=== PATIENT | male | born 1955 | race Caucasian/White ===

== ENCOUNTER 2017-11-24 13:12 | Observation (INO) | payer MEDICAID ==
[~2017-11-24] VITALS: Ht 180.3 cm; Wt 144.1 kg
--- NOTE | ~2017-11-24 | HEMODYNAMI ---
PATIENT:SOCORRO SOLORIO MEDICAL RECORD: [id number] : 55 LOCATION:[facility] D.2103 ADMISSION DATE: 11/24/17 Generatedon:11/25/201711:59 Patient name: SOCORRO SOLORIO Patient #: [id number] SSN: : 1 Date of study: 11/25/2017 Page: Of Hemodynamic Procedure Report Patient Data Patient Demographics Procedure consent was obtained First Name: SOCORRO Gender: Male Last Name: LYNDSEY : 1955 [facility] Initial: B Age: 62 year(s) Patient #: [id number] Race: Unknown Additional ID: [id number] Contact details Address: [address] State: [place] City: [place] Zip code: [address] Past Medical History Allergies Allergen Reaction Date Comments Reported Penicillins 11/25/2017 Admission Admission Data Admission Date: 11/24/2017 Admission Time: 15:25 Room #: D2103 Lab Results Lab Result Date: 11/25/2017 Lab Result Time: 0:00 Biochemistry Name Units Result Min Max BUN mg/dl 19 --(----)*- 7 18 Creatinine mg/dl 1.3 --(---*)-- 0.6 1.3 CBC Name Units Result Min Max Hemoglobin g/dl 14.9 --(-*--)-- 13.5 17.5 Procedure Procedure Types Cath Procedure Diagnostic Procedure [facility] w/Coronaries Procedure Description Procedure Date Procedure Date: 11/25/2017 Procedure Start Time: 11:47 Procedure End Time: 11:58 Procedure Staff Name Function Lc Hawthorne MD Performing Physician Marshall Jorge RT Monitor Wei Olivarez RN Nurse Procedure Data Cath Procedure Fluoroscopy Diagnostic fluoroscopy Total fluoroscopy Time: 1.8 time: 1.8 min min Diagnostic fluoroscopy Total fluoroscopy dose: dose: 351.08 mGy 351.08 mGy Contrast Material Contrast Material Type Amount (ml) Isovue 300 49 Entry Location Entry Primary Successful Side Size Upsize Upsize Entry Closure Curtis ccessful Closure Location (Fr) 1 (Fr) 2 (Fr) Remarks Device Remarks Radial Right 6 Fr Mechanical artery Short Compression Estimated blood loss: 10 ml Diagnostic catheters Device Type Used For End Catheter Placement DIAGNOSTIC [place] 110cm 5 Procedure Fr catheter ([id number]) Procedure Medications Medication Administration Route Dosage Oxygen NC 2 l/min Heparin Flush Bag added to field 2 bags (1000units/500ml NS) 0.9% NaCl I.V. 100 ml/hr Radial Cocktail added to field 1 syringe (Verapomil 2mg/Nitro 400mcg/Heparin 1500units) Fentanyl I.V. 50 mcg Versed I.V. 1 mg Radial Cocktail added to field 1 syringe (Verapomil 2mg/Nitro 400mcg/Heparin 1500units) Fentanyl I.V. 50 mcg Versed I.V. 1 mg Fentanyl I.V. 50 mcg Hemodynamics Rest HGB: 14.9 (g/dl) Heart Rate: 73 (bpm) Pressure Samples Time Site Value (mmHg) Purpose Heart Use Rate(bpm) 11:49 LV 32/27,31 Snapshot 79 11:49 LV 121/10,11 Snapshot 101 Snapshots Pre Cath Intra NCS Post Cath Vital Signs Time Heart Resp SPO2 etCO2 NIBP (mmHg) Rhythm Pain Sedation Rate (ipm) (%) (mmHg) Status Level (bpm) 11:32:51 76 23 95 16.6 156/100(132) NSR 0 (11) 10(A) , No pain 11:37:30 83 24 95 34.1 165/114(141) NSR 0 (11) 10(A) , No pain 11:42:12 83 22 94 0 160/103(122) NSR 0 (11) 10(A) , No pain 11:46:53 82 19 94 26.5 137/88(103) NSR 0 (11) 10(A) , No pain 11:51:21 91 21 92 31 131/84(101) NSR 0 (11) 10(A) , No pain 11:55:49 83 19 91 15.1 131/93(106) NSR 0 (11) 10(A) , No pain Medications Time Medication Route Dose Verified Delivered Reason Notes Effectiveness by by 11:32:17 Oxygen NC 2 l/min Lc Olivarez RN physician 11:32:26 Heparin Flush added 2 bags Lc Wei used for Bag to Marine Olivarez RN procedure (1000units/500ml field NS) 11:32:39 0.9% NaCl I.V. 100 Lcduong Duttay Per ml/hr Marine Olivarez RN physician 11:32:46 Radial Cocktail added 1 Lc Carvajal used for (Verapomil to syringe Marine Olivarez RN procedure 2mg/Nitro field 400mcg/Heparin 1500units) 11:47:01 Fentanyl I.V. 50 mcg Lc Carvajal for sedation Marine Olivarez RN 11:47:07 Versed I.V. 1 mg Lc Duttay for sedation Marine Olivarez RN 11:49:32 Radial Cocktail added 1 Lc Lc for (Verapomil to syringe Marine Hawthorne MD vasodilation 2mg/Nitro field 400mcg/Heparin 1500units) 11:49:37 Fentanyl I.V. 50 mcg Lc Carvajal for sedation Marine Olivarez RN 11:49:42 Versed I.V. 1 mg Lc Duttay for sedation Marine Olivarez RN 11:51:29 Fentanyl I.V. 50 mcg Lc Carvajal for sedation Marine Olivarez RN Procedure Log Time Note 11:09:36 Diagnostic Cath Status : Elective 11:09:56 Marshall Jorge RT(R) (CV) sent for patient. Start room use. 11:09:58 Time tracking: Regular hours 11:10:03 Plan of Care:Hemodynamics will remain stable., Cardiac rhythm will remain stable., Comfort level will be maintained., Respiratory function will remain adequate., Patient/ family verbilizes understanding of procedure., Procedure tolerated without complication., Recovers from procedure without complications.. 11:21:47 Patient received from Med II to CCL 3 Alert and oriented. Tansferred to table in Supine position. 11:21:48 Warm blankets applied, and alban hugger turned on for patient comfort. 11:21:49 Correct patient and procedure confirmed by team. 11:21:50 Signed procedure consent form obtained from patient. 11:21:51 ECG and BP/O2 sat monitors applied to patient. 11:31:19 Vital chart was started 11:31:27 Baseline sample Acquired. 11:31:33 Rhythm: sinus rhythm 11:31:35 Full Disclosure recording started 11:31:39 H&P Date Dictated: 11/25/2017 New H&P dictated by physician.. 11:31:40 Pre-procedure instructions explained to patient. 11:31:40 Pre-op teaching completed and patient verbalized understanding. 11:31:42 Family unavailable. 11:31:43 Patient NPO since Midnight. 11:31:46 Is the patient allergic to Iodine/contrast media? No. 11:31:47 Was the patient premedicated? No 11:31:48 Is patient on blood thinner?Yes 11:31:51 ACC The patient was administered the following blood thiners within the last 24 hours: ACCPlavix 11:31:53 Patient diabetic? Yes. 11:31:54 If diabetic: On Metformin? Yes 11:31:59 If on Metformin: Last Dose? 11/23/2017 11:32:03 Previous problem with sedation/anesthesia? No ? 11:32:04 Snore? Yes 11:32:05 Sleep apnea? Yes 11:32:06 Deviated septum? No 11:32:07 Opens mouth fully? Yes 11:32:08 Sticks out tongue? Yes 11:32:10 Airway obstruction? No ? 11:32:16 Dentures? Yes out 11:32:17 Oxygen 2 l/min NC was administered by Wei Olivarez RN; Per physician; 11:32:26 Heparin Flush Bag (1000units/500ml NS) 2 bags added to field was administered by Wei Olivarez RN; used for procedure; 11:32:26 Patient pain scale 0/10 ?. 11:32:39 0.9% NaCl 100 ml/hr I.V. was administered by Wei Olivarez RN; Per physician; 11:32:39 IV patent on arrival in left forearm with 0.9% NaCl at [facility]. 11:32:41 Lab results completed and on chart. 11:32:45 Right Radial & Right Groin area was prepped with chlora-prep and draped in sterile fashion 11:32:46 Radial Cocktail (Verapomil 2mg/Nitro 400mcg/Heparin 1500units) 1 syringe added to field was administered by Wei Olivarez RN; used for procedure; 11:32:46 Alarms reviewed by R. N. 11:32:46 Sharps counted by scrub and verified by R.N. 11:33:11 Lab Result : BUN 19 mg/dl 11:33:11 Lab Result : Creatinine 1.3 mg/dl 11:33:11 Lab Result : Hemoglobin 14.9 g/dl 11:37:56 Patient allergic to Penicillins 11:41:25 Physician arrived 11:41:26 --------ALL STOP TIME OUT------ 11:41: Final Timeout: patient, procedure, and site verified with staff and physician. All members of the team are in agreement. 11:41:31 Right Radial & Right Groin site verified by team. 11:41:53 Physical assessment completed. ASA score P 2 - A patient with mild systemic disease as per Lc Hawthorne MD. 11:42:05 Sedation plan: IV Moderate Sedation Medication:Versed, Fentanyl 11:44:41 Use device set Radial Dx or PCI 11:44:43 ACIST Syringe (16006) opened to sterile field. 11:44:44 Medline Cath Pack ([id number]) opened to sterile field. 11:44:45 Bag Decanter (2002S) opened to sterile field. 11:44:46 SHEATH 6FR Slender ([id number]) opened to sterile field. 11:44:47 DIAGNOSTIC WIRE .035 260cm J wire (903286) opened to sterile field. 11:44:48 ACIST Hand Control (39063) opened to sterile field. 11:44:49 ACIST Manifold (81490) opened to sterile field. 11:44:50 Tegaderm 4 x 4 (1626W) opened to sterile field. 11:44:51 MBrace Wrist Support ([id number]) opened to sterile field. 11:46:54 Zero performed for pressure channel P1 11:47:01 Fentanyl 50 mcg I.V. was administered by Wei Olivarez RN; for sedation; 11:47:05 Procedure started. 11:47:07 Versed 1 mg I.V. was administered by Wei Olivarez RN; for sedation; 11:47:11 Local anesthetic to right radial artery with Lidocaine 2% by Lc Hawthorne MD.INITIAL ACCESS ONLY 11:47:51 A 6 Fr Short sheath was inserted into the Right Radial artery 11:48:22 A DIAGNOSTIC [place] 110cm 5 Fr catheter (015214) was advanced over the wire and used for Procedure. 11:49:32 Radial Cocktail (Verapomil 2mg/Nitro 400mcg/Heparin 1500units) 1 syringe added to field was administered by Lc Hawthorne MD; for vasodilation; 11:49:37 Fentanyl 50 mcg I.V. was administered by Wei Olivarez RN; for sedation; 11:49:42 Versed 1 mg I.V. was administered by Wei Olivarez RN; for sedation; 11:50:05 LV hemodynamics recorded. 11:50:11 EF : 60 % 11:50:19 LV gram done using MCKEON 11:51:29 Fentanyl 50 mcg I.V. was administered by Wei Olivarez RN; for sedation; 11:51:35 LCA angiography performed. 11:51:46 RCA angiography performed. 11:52:16 Catheter removed. 11:52:19 TR BAND Large ([id number]) opened to sterile field. 11:53:07 Sheath removed intact; hemostasis achieved with Mechanical Compression to the Right Radial artery. 11:53:10 Procedure ended.(Physican Out) 11:54:16 Fluoroscopy time 01.80 minutes. 11:54:25 Fluoroscopy dose: 351.08 mGy 11:54:25 Flurop Dose total: 351.08 11:54:40 Contrast amount:Isovue 300 49ml. 11:56:49 TR band inflated with 11cc of air. 11:56:55 Insertion/operative site no bleeding no hematoma. 11:57:16 Post right radial artery:stable 11:57:23 Post-procedure physical assessment completed. ASA score P 2 - A patient with mild systemic disease as per Lc Hawthorne MD. 11:57:26 Post procedure rhythm: unchanged. 11:57:29 Estimated blood loss: 10 ml 11:57:31 Post procedure instruction explained to patient.Patient verbalizes understanding. 11:57:31 Patient needs reinforcement of post procedure teaching. 11:57:33 Procedure and supply charges have been captured, reviewed, submitted and are correct. 11:57:52 Vital chart was stopped 11:57:53 See physician's report for complete and final results. 11:57:58 Report given to [facility]. 11:58:02 Patient transfered to [facility] with Bed. 11:58:04 Procedure ended. 11:58:04 Full Disclosure recording stopped 11:58:09 End room use (Document Last) Device Usage Item Name Manufacture Quantity Catalog Hospital Part Current Minima l Lot# / Number Charge Number Stock Stock Serial# Code ACIST Acist 1 23894 [id number] 708873 137276 20 Syringe Medical (78516) Systems Inc Medline Cath Cardinal 1 [id number] 508391 93930 885494 5 Pack Health ([id number]) Bag Decanter Microtek 1 2001S 338267 35572 330488 5 (2001S) Medical Inc. SHEATH 6FR Terumo 1 [id number] 415545 187471 690053 40 Slender ([id number]) DIAGNOSTIC [facility] [place] 1 391639 879952 732923 616271 30 WIRE .035 260cm J wire (741460) ACIST Hand Acist 1 84294 279821 527901 633056 5 Control Medical (81658) Systems Inc ACIST Acist 1 98979 624957 961291 954593 5 Manifold Medical (37121) Systems Inc Tegaderm 4 x 3M 1 1626W 102454 350315 521734 5 4 (1626W) MBrace Wrist Advanced 1 [id number] 760042 48457 387215 5 Support Vascular ([id number]) Dynamics DIAGNOSTIC Terumo 1 40-6085 284437 005665 481029 5 [place] 110cm 5 Fr catheter (901856) TR BAND Terumo 1 [id number] 450957 641305 903675 40 Large ([id number]) Signature Audit [place] Stage Time Signature Unsigned Intra-Procedure 11/25/2017 Marshall Jorge 11:59:31 AM RT(R) (CV) Signatures Monitor : Marshall Jorge RT Signature : Date : Time : [address] [place] [address]
--- NOTE | ~2017-11-24 | HP ---
PATIENT: SOCORRO SOLORIO MEDICAL RECORD: [id number] ACCOUNT: [id number] LOCATION:[address] : 55 ADMISSION DATE: 11/24/17 HISTORY AND PHYSICAL EXAMINATION DIAGNOSES: 1. Unstable angina. 2. Supraventricular tachycardia. 3. Abnormal ECG. HISTORY OF PRESENT ILLNESS: Mr. Solorio presents with chest discomfort, found to be in supraventricular tachycardia with heart rates in the 160 range. He was given IV beta-hazel, broke, he is in the 70s, his chest pain went away. He had chest pain for greater than an hour with this. He has not had a history of ischemic heart disease, not had a cardiac catheterization in the past. He has a history of distant past for a pacemaker that reached end of life and he had this removed by Dr. Agustin a number of years ago. He has hyperlipidemia and wgb-njzbtty-owxugxket diabetes. PHYSICAL EXAMINATION: GENERAL APPEARANCE: Well-nourished, well-developed, appears stated age. Level of distress, comfortable. PSYCHIATRIC: Mental status, alert, normal affect. Orientation, oriented to time, place and person. EYES: Lids and conjunctiva, noninjected. No discharge, no pallor. ENT: Lips, teeth, gums, normal dentition. Oropharynx, no cyanosis, no pallor. NECK: Carotid arteries, bilateral normal upstroke, no bruits, no thrills. JUGULAR VEINS: No jugular venous pressure or distention. CERVICAL LYMPH NODES: Nontender, nonenlarged. THYROID: Not enlarged. Nontender. No nodules. LUNGS: Respiratory effort, unlabored. CHEST: Normal curvature. No thoracic deformity. No chest wall tenderness. Percussion, resonant. Auscultation, clear. No wheezes, no rales, no rhonchi. CARDIOVASCULAR: Precordial exam, nondisplaced. No heaves or pericardial thrills. Rate and rhythm, regular. Heart sounds, normal S1, normal S2. No S3, no gallop, no rub. Systolic murmur, not heard. Diastolic murmur, not heard. EXTREMITIES: No cyanosis, no edema. Peripheral pulses, full and equal in all extremities, except as noted. No bruits appreciated. ABDOMEN: Soft, nondistended. Normal aorta. No bruit. Nontender. No masses. Liver, nontender, no hepatomegaly. Spleen, nontender, no splenomegaly. MUSCULOSKELETAL: No joint tenderness. No joint swelling. No erythema. NEUROLOGICAL: Normal gait, normal strength, normal tone. SKIN: Warm and dry. REVIEW OF SYSTEMS: The patient reports easy bruising but reports no swollen glands. The patient reports no fever, no night sweats, no significant weight gain, no significant weight loss. No significant exercise tolerance. The patient reports no dry eyes, no irritation, no vision change. Patient reports no difficulty hearing and no ear pain. Patient reports no frequent nose bleeds or nose and sinus problems. Patient reports on arm pain on exertion. No shortness of breath while lying down. No history of heart murmur. Patient reports no cough, no wheezing or coughing up blood. Patient reports no abdominal pain, no vomiting. Normal appetite. No diarrhea and not vomiting blood. No nausea and no constipation. Patient reports no incontinence. No difficulty urinating. No hematuria. No increased frequency. Patient reports HISTORY AND PHYSICAL [id number] SOCORRO SOLORIO no muscle aches. No weakness, no arthralgias, no back pain. No swelling of the extremities. Patient reports no abnormal mole, no jaundice, no rashes. Reports no loss of consciousness. No weakness and no numbness. No seizures, dizziness, or headaches. The patient reports no depression, no sleep disturbance, feeling safe in a relationship and no alcohol abuse. Patient reports on fatigue. Reports no runny nose or sinus pressure. No itching, no hives, and no frequent sneezing. OVERALL IMPRESSION: Unstable angina, most likely has hemodynamically significant coronary artery disease. We will start him on metoprolol 25 mg b.i.d., aspirin and Plavix. Plan for cardiac catheterization in the a.m. TRANSINT:[id number] Voice Confirmation ID: [id number] DOCUMENT ID: [id number] RAYMOND SPARKS MD at 1148 CC: [id number] DICTATION DATE: 11/24/17 1526 STATION MANAGER: 11/24/17 1543 DIS IN 11/25/17 [place] [id number] [place] [id number]
--- NOTE | ~2017-11-24 | DS ---
PATIENT:SOCORRO SOLORIO :55 MEDICAL RECORD: [id number] DISCHARGE SUMMARY ADMISSION DATE: 11/24/17 DISCHARGE DATE: 11/25/17 DISCHARGE DIAGNOSES: 1. Supraventricular tachycardia. 2. Chest pain. 3. Normal cardiac catheterization. HOSPITAL COURSE: Mr. Solorio presents with chest pain and supraventricular tachycardia. The supraventricular tachycardia was broken with a beta hazel. He was placed on Lopressor. He had no further episodes of the supraventricular tachycardia. Cardiac catheterization revealed no significant coronary artery disease. He was discharged home with the addition of Lopressor 25 mg b.i.d. to his medical regimen. He will follow up with [facility] in 1 month. TRANSINT:[id number] Voice Confirmation ID: [id number] DOCUMENT ID: [id number] RAYMOND SPARKS MD at 1148 CC: [id number] DICTATION DATE: 11/25/[address] RADIO TECHNICIAN: 11/25/17 1230 DIS IN 11/25/17 [place] [id number] [place] [address]
--- NOTE | ~2017-11-24 | OP ---
PATIENT NAME: SOCORRO SOLORIO MEDICAL RECORD: [id number] :55 LOCATION:D.M2 D.2103 ADMISSION DATE:11/24/17 SURGEON: RAYMOND SPARKS MD DATE OF OPERATION: 11/25/2017 PROCEDURES: 1. Left heart catheterization. 2. Selective coronary angiography. 3. Left ventriculogram. INDICATION: Chest pain compatible with angina. PROCEDURE IN DETAIL: After informed consent was obtained and after detailed explanation of risks, benefits as well as alternative therapies, the patient elected to proceed with angiogram and angioplasty. The right radial area was prepped and draped in normal sterile fashion. The right radial artery was cannulated via modified Seldinger technique with placement of 6-Swedish sheath. All catheters exchanged through this sheath. FINDINGS: Left ventriculogram was performed in standard 30-degree MCKEON view, reveals good cardiac wall motion throughout all segments. Overall ejection fraction estimated at 60%. SELECTIVE CORONARY ANGIOGRAPHY: Left main, left anterior descending, left circumflex, right coronary all have only minimal irregularities, nothing greater than 10%. No flow-limiting stenosis. OVERALL IMPRESSION: Chest pain is not due to ischemic heart disease secondary to the arrhythmia. Center medical management on treatment of arrhythmia. TRANSINT:[id number] Voice Confirmation ID: [id number] DOCUMENT ID: [id number] RAYMOND SPARKS MD at 1148 CC: [id number] DICTATION DATE: 11/25/17 1158 CERTIFIED PROFESSIONAL MIDWIFE: 11/25/17 1207 DIS IN 11/25/17 [place] [id number] [place] [address]
[2017-11-24 13:46] LABS: BASOPHILS 0.2 % (0-2); EOSINOPHILS 1.5 % (0-7); HEMATOCRIT 44.7 % (42.0-54.0); HEMOGLOBIN 14.9 g/dL (13.5-17.5); IMMATURE GRANULOCYTES 0.2 % (0-5); LYMPHOCYTES 28.7 % (15-50); MCH 30.5 pg (26.0-34.0); MCHC 33.3 g/dL (31.0-37.0); MCV 91.6 fL (80.0-100.0); MEAN PLATELET VOLUME 10.3 fL (7.4-10.4); MONOCYTES 6.2 % (2-11); NEUTROPHILS 63.2 % (40-80); PLATELET COUNT 154 10x3/uL (130-400); RBC 4.88 10x6/uL (4.20-6.10); RDW 14.2 % (11.5-14.5); WBC 5.8 10x3/uL (4.8-10.8)
[2017-11-24 14:06] LABS: ALBUMIN 4.2 g/dL (3.4-5.0); ALKALINE PHOSPHATASE 70 U/L (46-116); ALT (SGPT) 52 U/L (10-68); BILIRUBIN - TOTAL 0.63 mg/dL (0.2-1.3); CALC OSMOLALITY 288 mosm/kg (275-300); CALCIUM 9.2 mg/dL (8.5-10.1); CARBON DIOXIDE 26.7 mmol/L (21.0-32.0); CHLORIDE - SERUM 104 mmol/L (98-107); CREATININE - SERUM 1.3 mg/dL (0.6-1.3); GLUCOSE 209 mg/dL (74-106); POTASSIUM - SERUM 3.5 mmol/L (3.5-5.1); PROTEIN - SERUM 7.5 g/dL (6.4-8.2); SODIUM 141 mmol/L (136-145); UREA NITROGEN 19 mg/dL (7-18); eGFR NON AFRICAN AMERICAN 59 mL/min (90-120)
[2017-11-24 14:14] LABS: CHOL - HDL RATIO 4.8 ratio (2.3-4.9); CHOLESTEROL, TOTAL 144 mg/dL (0-200); CKMB 5.2 U/L (0.0-3.6); CREATINE KINASE 429 UL (21-232); HDL CHOLESTEROL 30 mg/dL (32-96); LDL CHOLESTEROL 46 mg/dL (0-100); LDL-HDL RATIO 1.5 ratio (1.5-3.5); TRIGLYCERIDE 344 mg/dL (30-200)
[2017-11-24 14:16] LABS: TROPONIN-I < 0.017 ng/mL (0.000-0.060)
[2017-11-24] MEDS ORDERED: ZOCOR40 MG PO (22:24)
[2017-11-24] MEDS ORDERED: ZESTRIL40 MG PO (22:24)
[2017-11-24] MEDS ORDERED: HYDROCODONE-APA1 TAB PO (22:24)
[2017-11-24] MEDS ORDERED: MOBIC7.5 MG PO (22:24)
[2017-11-24] MEDS ORDERED: ZITHROMAX250 MG PO (22:25)
[2017-11-25 04:00] VITALS: BP 108/77
[2017-11-25 05:26] VITALS: BP 108/77; BP 137/78; Ht 180.3 cm; Wt 144.1 kg
[2017-11-25 09:10] VITALS: BP 128/82
[2017-11-25] MEDS ORDERED: LOPRESSOR25 MG PO (13:19)
== END 2017-11-25 18:03 | disposition home or self-care (01) ==
LOC: D.ER 13:12 → D.CATH 13:12 → D.M2 15:25 → D.EDHOLD 15:25 → OBSVTIME 15:25 → D.EDHOLD 17:01 → D.CATH 17:01 → D.M2 20:12 → EDSTATUS 11-25 11:30 → D.M2 11-25 18:03
PROVIDERS: Emergency Medicine
DX: I47.1 Supraventricular tachycardia (principal); R07.9 Chest pain, unspecified; E78.5 Hyperlipidemia, unspecified; E11.9 Type 2 diabetes mellitus without complications

== ENCOUNTER 2018-03-23 06:12 | Emergency (ER) | payer MEDICAID ==
[~2018-03-23] VITALS: Ht 180.3 cm; Wt 139.1 kg
[~2018-03-23 06:12] MED LIST: HYDROCODONE-APA1 TAB PO; LOPRESSOR25 MG PO; MOBIC7.5 MG PO; ZESTRIL40 MG PO; ZITHROMAX250 MG PO; ZOCOR40 MG PO
[2018-03-23 06:20] VITALS: Ht 180.3 cm; Wt 139.1 kg
[2018-03-23] MEDS ORDERED: LEVAQUIN500 MG PO (06:22)
[2018-03-23 06:56] LABS: BASOPHILS 0.2 % (0-2); EOSINOPHILS 1.5 % (0-7); HEMATOCRIT 45.4 % (42.0-54.0); HEMOGLOBIN 15.1 g/dL (13.5-17.5); IMMATURE GRANULOCYTES 0.4 % (0-5); LYMPHOCYTES 29.5 % (15-50); MCHC 33.3 g/dL (31.0-37.0); MCV 90.3 fL (80.0-100.0); MEAN PLATELET VOLUME 10.7 fL (7.4-10.4); MONOCYTES 6.6 % (2-11); NEUTROPHILS 61.8 % (40-80); PLATELET COUNT 136 10x3/uL (130-400); RBC 5.03 10x6/uL (4.20-6.10); RDW 13.9 % (11.5-14.5); WBC 4.5 10x3/uL (4.8-10.8)
[2018-03-23 07:12] LABS: ALBUMIN 3.8 g/dL (3.4-5.0); ALKALINE PHOSPHATASE 79 U/L (46-116); ALT (SGPT) 55 U/L (10-68); CALC OSMOLALITY 286 mosm/kg (275-300); CALCIUM 9.4 mg/dL (8.5-10.1); CARBON DIOXIDE 25.9 mmol/L (21.0-32.0); CHLORIDE - SERUM 105 mmol/L (98-107); CREATININE - SERUM 1.3 mg/dL (0.6-1.3); GLUCOSE 222 mg/dL (74-106); POTASSIUM - SERUM 4.3 mmol/L (3.5-5.1); PROTEIN - SERUM 7.3 g/dL (6.4-8.2); SODIUM 138 mmol/L (136-145); UREA NITROGEN 24 mg/dL (7-18); eGFR NON AFRICAN AMERICAN 59 mL/min (90-120)
[2018-03-23 07:17] LABS: APPEARANCE CLEAR (CLEAR); BILIRUBIN NEGATIVE (NEGATIVE); COLOR YELLOW (YELLOW); GLUCOSE 50 mg/dL (NEGATIVE); KETONE NEGATIVE (NEGATIVE); NITRITE NEGATIVE (NEGATIVE); PROTEIN NEGATIVE (NEGATIVE); UROBILINOGEN NORMAL (NORMAL)
[2018-03-23 07:17] LABS: LIPASE 194 U/L (73-393); PRO BNP 14 pg/mL (0-125); TROPONIN-I < 0.017 ng/mL (0.000-0.060)
[2018-03-23] MEDS ORDERED: FLAGYL500 MG PO (09:28)
[2018-03-23] MEDS ORDERED: NORCO 7.5/325 T1 TA1 PO (09:28)
[2018-03-23 09:51] VITALS: BP 138/86
== END 2018-03-23 09:49 | disposition home or self-care (01) ==
LOC: D.ER 06:12
PROVIDERS: Family Medicine
DX: R10.9 Unspecified abdominal pain (principal); K57.92 Diverticulitis of intestine, part unspecified, without perforation or abscess without bleeding; K62.5 Hemorrhage of anus and rectum; R20.2 Paresthesia of skin; I10 Essential (primary) hypertension; R06.02 Shortness of breath; R51 Headache

== ENCOUNTER 2018-04-05 11:29 | Emergency (ER) | payer MEDICAID ==
[~2018-04-05] VITALS: Ht 180.3 cm; Wt 135.5 kg
[~2018-04-05 11:29] MED LIST changes: +FLAGYL500 MG PO; +LEVAQUIN500 MG PO; +NORCO 7.5/325 T1 TA1 PO
[2018-04-05 11:52] VITALS: Ht 180.3 cm; Wt 135.5 kg
[2018-04-05 13:01] LABS: BASOPHILS 0.4 % (0-2); EOSINOPHILS 1.5 % (0-7); HEMATOCRIT 44.1 % (42.0-54.0); HEMOGLOBIN 14.9 g/dL (13.5-17.5); IMMATURE GRANULOCYTES 0.2 % (0-5); LYMPHOCYTES 30.2 % (15-50); MCH 30.5 pg (26.0-34.0); MCHC 33.8 g/dL (31.0-37.0); MCV 90.2 fL (80.0-100.0); MEAN PLATELET VOLUME 10.5 fL (7.4-10.4); MONOCYTES 6.9 % (2-11); NEUTROPHILS 60.8 % (40-80); PLATELET COUNT 137 10x3/uL (130-400); RBC 4.89 10x6/uL (4.20-6.10); RDW 13.9 % (11.5-14.5); WBC 5.4 10x3/uL (4.8-10.8)
[2018-04-05 13:22] LABS: ALBUMIN 4.4 g/dL (3.4-5.0); ANION GAP 15.6 mmol/L (8-16); BILIRUBIN - TOTAL 0.73 mg/dL (0.2-1.3); CALCIUM 9.4 mg/dL (8.5-10.1); CARBON DIOXIDE 25.5 mmol/L (21.0-32.0); CREATININE - SERUM 2.2 mg/dL (0.6-1.3); POTASSIUM - SERUM 5.1 mmol/L (3.5-5.1); PROTEIN - SERUM 7.8 g/dL (6.4-8.2)
[2018-04-05 13:35] LABS: APPEARANCE CLEAR (CLEAR); BACTERIA MODERATE /hpf (NONE SEEN); BILIRUBIN NEGATIVE (NEGATIVE); COLOR DK YELLOW (YELLOW); EPITHELIAL CELLS 0-5 /hpf (0-5); GLUCOSE NEGATIVE (NEGATIVE); KETONE NEGATIVE (NEGATIVE); MUCUS <1+ /lpf (NONE SEEN); NITRITE NEGATIVE (NEGATIVE); PROTEIN TRACE mg/dL (NEGATIVE); RED CELLS - URINE OCC /hpf (0-5); SPECIFIC GRAVITY 1.025 (1.005-1.020); UROBILINOGEN NORMAL (NORMAL); WHITE CELLS - URINE 0-5 /hpf (0-5)
[2018-04-05] MEDS ORDERED: ULTRAM50 MG PO (16:33)
[2018-04-05 17:22] VITALS: BP 118/79
== END 2018-04-05 17:22 | disposition home or self-care (01) ==
LOC: D.CATH 11:29 → D.ER 11:29 → EDSTATUS 12:46 → D.ER 17:22 → EDSTATUS 20:29
PROVIDERS: Family Medicine
DX: R10.9 Unspecified abdominal pain (principal); N28.9 Disorder of kidney and ureter, unspecified; K43.9 Ventral hernia without obstruction or gangrene